=== PATIENT | female | born 1960 | race African-American/Black ===

== ENCOUNTER 2019-01-01 13:40 | Inpatient (IN) | payer MEDICARE, MEDICAID ==
[2019-01-01] VITALS (7 sets, daily range): BP systolic 124–159; BP diastolic 60–98; BMI 40.4
[~2019-01-01 13:40] MED LIST: ASCORBIC ACID500 MG PO; ASPIRIN81 MG PO; BUMEX2 MG PO; CARDIZEM CD180 MG PO; CATAPRES0.1 MG PO; COREG 3.1253.125 MG; COREG12.5 MG PO; COREG25 MG; COREG25 MG PO; COREG6.25 MG PO; ELIQUIS5 MG PO; FAMOTIDINE10 MG PO; GAS-X125 M1 PO; GLUCAGEN1 MG/VIAL IM; HUMALOG 30100 UNITS/ SC; HYDRALAZINE HC100 MG PO; HYDRALAZINE HCL25 MG; HYDROCODON-ACE1 EAC2 PO; IPRAT-ALBUT 0.5-3 ML UPD; ISOSORBIDE DINI10 MG; K-DUR20 MEQ PO; KEPPRA500 MG PO; LAMICTAL25 MG PO; LANTUS INSULIN10 ML SC; LASIX40 MG PO; LECITHIN1200 MG; LIPITOR80 MG PO; MECLIZINE HCL25 MG PO; METOLAZONE5 MG PO; MIRALAX17 GM PO; NEURONTIN 300300 MG PO; NITROSTAT0.4 MG SL; NORVASC5 MG; NYSTATIN OINTME15 GM; PAXIL20 MG PO; PROTONIX40 MG; RENA-VITE TABL0.8 MG PO; SENNA LAXATIVE8.6 MG PO; ULORIC40 MG PO; Xopenex 0.63 MG INH UPD
[2019-01-01 14:15] LABS: BASOPHILS 0.1 % (0-2); EOSINOPHILS 0.8 % (0-7); HEMATOCRIT 25.3 % (36.0-48.0); HEMOGLOBIN 8.3 g/dL (12-16); IMMATURE GRANULOCYTES 0.4 % (0-5); LYMPHOCYTES 8.2 % (15-50); MCH 31.1 pg (26.0-34.0); MCHC 32.8 g/dL (31.0-37.0); MCV 94.8 fL (80.0-100.0); MEAN PLATELET VOLUME 9.5 fL (7.4-10.4); MONOCYTES 5.1 % (2-11); NEUTROPHILS 85.4 % (40-80); PLATELET COUNT 267 10x3/uL (130-400); RBC 2.67 10x6/uL (4.00-5.40); RDW 15.7 % (11.5-14.5); WBC 12.7 10x3/uL (4.8-10.8)
[2019-01-01 14:25] LABS: KETONE - SERUM NEGATIVE (NEGATIVE)
[2019-01-01 14:40] LABS: ALBUMIN 3.1 g/dL (3.4-5.0); ALKALINE PHOSPHATASE 81 U/L (46-116); ALT (SGPT) 35 U/L (10-68); BILIRUBIN - TOTAL 0.51 mg/dL (0.2-1.3); CALC OSMOLALITY 309 mosm/kg (275-300); CALCIUM 9.4 mg/dL (8.5-10.1); CARBON DIOXIDE 25.5 mmol/L (21.0-32.0); CHLORIDE - SERUM 100 mmol/L (98-107); CREATININE - SERUM 2.4 mg/dL (0.6-1.3); MAGNESIUM - SERUM 2.1 mg/dL (1.8-2.4); POTASSIUM - SERUM 4.7 mmol/L (3.5-5.1); PROTEIN - SERUM 8.6 g/dL (6.4-8.2); SODIUM 135 mmol/L (136-145); UREA NITROGEN 89 mg/dL (7-18); eGFR NON AFRICAN AMERICAN 22 mL/min (90-120)
[2019-01-01 14:48] LABS: APPEARANCE HAZY (CLEAR); BILIRUBIN NEGATIVE (NEGATIVE); COLOR YELLOW (YELLOW); GLUCOSE 250 mg/dL (NEGATIVE); KETONE NEGATIVE (NEGATIVE); NITRITE NEGATIVE (NEGATIVE); PROTEIN NEGATIVE (NEGATIVE); SPECIFIC GRAVITY 1.015 (1.005-1.020); UROBILINOGEN NORMAL (NORMAL)
[2019-01-01 14:53] LABS: GLUCOSE 329 mg/dL (74-106)
--- NOTE | 2019-01-01 18:07 | NUR ---
WILL DC NS PER ADMIT ORDERS, ADMIT ORDER STATES S-LOC FLUSH Q SHIFT.
--- NOTE | 2019-01-01 20:39 | NUR ---
HS MEDS GIVEN WITH FRESH ICE WATER. BS 333, COVERED PER S/S. PT DENIES PAIN OR NEEDS, BED LOW, CL IN REACH.
[2019-01-02] VITALS (7 sets, daily range): BP systolic 118–166; BP diastolic 60–89; BMI 42.2; BMI 40.4
--- NOTE | 2019-01-02 07:02 | NUR ---
MORNING ROUNDS MADE. PT LAYING IN RESTING. DENIES NEEDS AT THIS TIME. FALL PRECAUTIONS IN PLACE. WILL CTM.
--- NOTE | 2019-01-02 09:13 | NUR ---
VITALS STABLE. TOOK MEDS WITHOUT DIFFICULTY. IV TO R EJ PATENT, DRSG C/D/I, NO REDNESS OR EDEMA NOTED, NS @ 10. 2L 02 VIA WI. A/O X 4. NORMAL SINUS ON TELE. MCKAY IN PLACE, DRAINING BY GRAVITY, CLEAR YELLOW URINE NOTED. CATHRYN HEEL PROTECTORS NOTED. DENIES FURTHER NEEDS AT THIS TIME. FALL PRECAUTIONS IN PLACE. YELLOW GOWN ON. NON SKID SOCKS ON. SR UP X 3. CL IN REACH. BED LOWERED AND LOCKED. CL IN REACH. WILL CTM.
--- NOTE | 2019-01-02 10:07 | NUR ---
I have reviewed this patient and I concur with the Shift Assessment completed by the Licensed Practical Nurse today this shift.
--- NOTE | 2019-01-02 13:57 | MORECARE ---
CASE MANAGEMENT DISCHARGE SUMMARY PATIENT: VIDA GOMEZ UNIT: [id number] ADM DATE: 01/01/19 AGE: 58 : 58 SEX: F ROOM/BED: D.2126 AUTHOR: BAYRON,DOC PHYSICIAN: REFERRING PHYSICIAN: FRANKY CASAREZ MD DATE OF SERVICE: 01/02/19 Discharge Plan Patient Name: VIDA GOMEZ Facility: [facility]:[place] : 1960 Planned Disposition: [facility] Facility Anticipated Discharge Date: Discharge Date: Expected LOS: Initial Reviewer: [email or web address] Initial Review Date: 01/01/2019 Generated: 01/02/19 2:57 pm DCPIA - Discharge Planning Initial Assessment Updated by [email or web address]: Jovanni Santa on 01/02/19 1:52 pm * Is the patient Alert and Oriented? Yes * How many steps to enter\exit or inside your home? NONE * PCP DR. BABB * [facility] * Preadmission Environment [facility] Facility * Facility Name [facility] * ADLs Partial Dependent * Partial ADLs (Assistance needed) Ambulation Bathing Dressing Medication Management Transfers * Equipment Cane Shower Chair * Other Equipment ALL MEDICAL EQUIPMENT PROVIDED BY FACILITY * List name and contact numbers for known caregivers / representatives who currently or will assist patient after discharge: MARIE SUAREZ DTR, * Verbal permission to speak to the caregivers and representatives has been obtained from the patient. N/A * Community resources currently utilized None * Please name any agencies selected above. PT REPORTS HAVING [facility]IOR TO [facility] FOR REHAB * Additional services required to return to the preadmission environment? No * Can the patient safely return to the preadmission environment? Yes * Has this patient been hospitalized within the prior 30 days at any hospital? Yes External Providers External Provider: [facility] Next Contact Date: 01/02/2019 Service Request Date: Service Type: Resolution: Reviewer: Comments: Coverage Notice Reviewer: [id number] Mercedes Santa Notice Issued Date-Time: 01/02/2019 9:05 Notice Type: Patient Choice Letter Notice Delivered To: Patient Relationship to Patient: Truss Puller Helper Name: Delivery Method: HAND - Hand Delivered Jo Days: Prior Verbal Notification: Recipient Understood Notice: Yes Recipient Signature: Med Rec Note Co-signed by Attending: Coverage Notice Comment: [facility] RETURN Patient Name: VIDA GOMEZ Page [phone] at 1357 All edits/amendments must be made on the electronic document DICTATION DATE: 01/02/19 1356 PATIENT TRANSITION SPECIALIST: COLT 01/02/19 1356 RPT#: [id number] DC DATE: STATUS: ADM IN [facility] [address] [place] [address] END OF REPORT
--- NOTE | 2019-01-02 14:08 | MORECARE ---
CASE MANAGEMENT DISCHARGE SUMMARY PATIENT: VIDA GOMEZ UNIT: [id number] ADM DATE: 01/01/19 AGE: 58 : 58 SEX: F ROOM/BED: D.8786 AUTHOR: BAYRON,DOC PHYSICIAN: REFERRING PHYSICIAN: FRANKY CASAREZ MD DATE OF SERVICE: 01/02/19 Discharge Plan Patient Name: VIDA GOMEZ Facility: [facility]:Given : 1960 Planned Disposition: Correction Facility Anticipated Discharge Date: Discharge Date: Expected LOS: Initial Reviewer: [id number] Initial Review Date: 01/01/2019 Generated: 01/02/19 3:07 pm Comments DCP- Discharge Planning Updated by DANIELLA: Jovanni Santa on 01/02/19 12:[address] Patient Name: VIDA GOMEZ Admission Status: ER Accout number: [id number] Admission Date: 01-01-2019 : 1960 Admission Diagnosis: Attending: FRANKY CASAREZ Current LOS: 1 Anticipated DC Date: Planned Disposition: Correction Facility Primary Insurance: [facility] MEDICARE SOLUTIONS PLANNED EXTERNAL PROVIDER: [facility], MEDICARE REHAB BED Discharge Planning Comments: CM MET WITH PT IN ROOM TO DISCUSS DISCHARGE PLANNING AND NEEDS. PT REPORTS BEING IN REHAB AT [facility] AND WILL BE RETURNING THERE FOR CONTINUED REHAB AT DISCHARGE. CM GAVE [facility] HOME FACILITY PROVIDER LISTING AND COMPLETED CHOICE FOR [facility] WHICH PT WAS NOT ABLE TO SIGN. CM FAXED HOSPITAL UPDATE TO [facility] AT [phone]. FOR DISCHARGE, FAX DISCHARGE INFORMATION TO [facility] AT [phone]. NURSE REPORT TO BE CALLED TO [facility] AT [phone]. [facility] TO ARRANGE VAN TRANSPORTATION. Petroleum Refining Firer: Jovanni aSnta DCPIA - Discharge Planning Initial Assessment Updated by [id number]: Jovanni Santa on 01/02/19 1:52 pm * Is the patient Alert and Oriented? Yes * How many steps to enter\exit or inside your home? NONE * PCP DR. BABB * [facility] * Preadmission Environment [facility] Facility * Facility Name [facility] * ADLs Partial Dependent * Partial ADLs (Assistance needed) Ambulation Bathing Dressing Medication Management Transfers * Equipment Cane Shower Chair * Other Equipment ALL MEDICAL EQUIPMENT PROVIDED BY FACILITY * List name and contact numbers for known caregivers / representatives who currently or will assist patient after discharge: MARIE SUAREZ, DTR, * Verbal permission to speak to the caregivers and representatives has been obtained from the patient. N/A * Community resources currently utilized None * Please name any agencies selected above. PT REPORTS HAVING [facility] TO [facility] FOR REHAB * Additional services required to return to the preadmission environment? No * Can the patient safely return to the preadmission environment? Yes * Has this patient been hospitalized within the prior 30 days at any hospital? Yes Coverage Notice Reviewer: [id number] Mercedes Santa Notice Issued Date-Time: 01/02/2019 9:05 Notice Type: Patient Choice Letter Notice Delivered To: Patient Relationship to Patient: Preparation Operator Name: Delivery Method: HAND - Hand Delivered Jo Days: Prior Verbal Notification: Recipient Understood Notice: Yes Recipient Signature: Med Rec Note Co-signed by Attending: Coverage Notice Comment: [facility] SNF RETURN Last DP export: 01/02/19 12:57 p Patient Name: VIDA GOMEZ Page 67855 at 1408 All edits/amendments must be made on the electronic document DICTATION DATE: 01/02/191406 ROD MILL OPERATOR: COLT 01/02/191406 RPT#: [id number] DC DATE: STATUS: ADM IN [facility] [address] [place] [address] END OF REPORT
[2019-01-02 16:41] LABS: INR 2.28 (0.85-1.17); PROTIME 24.4 SECONDS (11.6-15.0)
[2019-01-02 16:42] LABS: APTT 40.3 SECONDS (22.8-39.4); BASOPHILS 0.2 % (0-2); EOSINOPHILS 1.8 % (0-7); HEMATOCRIT 25.8 % (36.0-48.0); HEMOGLOBIN 8.1 g/dL (12-16); IMMATURE GRANULOCYTES 0.2 % (0-5); LYMPHOCYTES 5.3 % (15-50); MCH 29.8 pg (26.0-34.0); MCHC 31.4 g/dL (31.0-37.0); MCV 94.9 fL (80.0-100.0); MEAN PLATELET VOLUME 10.1 fL (7.4-10.4); MONOCYTES 7.1 % (2-11); NEUTROPHILS 85.4 % (40-80); PLATELET COUNT 312 10x3/uL (130-400); RBC 2.72 10x6/uL (4.00-5.40); WBC 12.6 10x3/uL (4.8-10.8)
[2019-01-02 16:46] LABS: % SATURATION 17 % (15-55); D-DIMER-QUANTITATIVE 3.07 ug/mLFEU (0.20-0.54); IRON 39 ug/dl (35-150); TOTAL IRON BIND CAPACITY 223 ug/dl (260-445); UNSAT IRON BIND CAPACITY 184 ug/dl (150-375)
--- NOTE | 2019-01-02 16:52 | NUR ---
DR. CASAREZ INFORMED OF PT ELEVATED D DIMER
--- NOTE | 2019-01-02 16:53 | NUR ---
NO ORDERS GIVEN FOR ELEVATED DDIMER AT THIS TIME
[2019-01-02 16:59] LABS: ANION GAP 15.2 mmol/L (8-16); BILIRUBIN - TOTAL 0.52 mg/dL (0.2-1.3); CALCIUM 9.6 mg/dL (8.5-10.1); CARBON DIOXIDE 25.5 mmol/L (21.0-32.0); CREATININE - SERUM 2.3 mg/dL (0.6-1.3); POTASSIUM - SERUM 4.7 mmol/L (3.5-5.1); PROTEIN - SERUM 8.6 g/dL (6.4-8.2)
--- NOTE | 2019-01-02 21:52 | NUR ---
HS MEDS GIVEN WITH FRESH ICE WATER. BS COVERED PER S/S. ORANGE JUICE GIVEN AT PT REQUEST.
--- NOTE | 2019-01-03 04:26 | NUR ---
RESTING WITH EYES CLOSED, RESPERATIONS EVEN, NO S/S DISTRESS NOTED.
[2019-01-03 04:30] VITALS: BP 127/69
--- NOTE | 2019-01-03 05:40 | NUR ---
I have reviewed this patient and I concur with the Shift Assessment completed by the Licensed Practical Nurse today this shift.
--- NOTE | 2019-01-03 08:00 | NUR ---
PT RESTING IN BED, SHIFT ASSESSMENT PERFORMED, DENIES ANY NEEDS AT THIS TIME, WILL CONT TO FOLLOW POC
[2019-01-03 08:43] VITALS: BP 139/95
--- NOTE | 2019-01-03 11:27 | NUR ---
PT FSBS 428, NOTIFIED ULISES WILDER. ULISES STATES TO GIVE THE 12U PLUS THE 5U ORDERED.
[2019-01-03 11:40] VITALS: BP 121/68
--- NOTE | 2019-01-03 12:21 | NUR ---
PT RESTING IN BED, CALL LIGHT WITHIN REACH, DENIES ANY NEEDS AT THIS TIME, WILL CONT TO FOLLOW POC
[2019-01-03 14:18] LABS: ANION GAP 14.6 mmol/L (8-16); CALCIUM 9.1 mg/dL (8.5-10.1); CARBON DIOXIDE 24.5 mmol/L (21.0-32.0); CREATININE - SERUM 2.5 mg/dL (0.6-1.3); POTASSIUM - SERUM 5.1 mmol/L (3.5-5.1)
[2019-01-03 14:39] LABS: HEMATOCRIT 25.7 % (36.0-48.0); HEMOGLOBIN 8.2 g/dL (12-16); MCH 31.2 pg (26.0-34.0); MCHC 31.9 g/dL (31.0-37.0); MEAN PLATELET VOLUME 9.1 fL (7.4-10.4); PLATELET COUNT 281 10x3/uL (130-400); RBC 2.63 10x6/uL (4.00-5.40); RDW 16.2 % (11.5-14.5); WBC 11.9 10x3/uL (4.8-10.8)
[2019-01-03 14:41] LABS: MCV 97.7 fL (80.0-100.0)
[2019-01-03 15:44] VITALS: BP 122/75
[2019-01-03 15:48] LABS: EOSINOPHILS 4 % (0-7); LYMPHOCYTES 11 % (15-50); MONOCYTES 7 % (2-11); NEUTROPHILS 78 % (40-80); PLATELET ESTIMATE NORMAL
--- NOTE | 2019-01-03 18:35 | NUR ---
MCKAY CATHETER REMOVED WITH CATHETER TIP INTACT VIA NURSE DRIVEN PROTOCOLS
--- NOTE | 2019-01-03 19:30 | NUR ---
REPORT RECIEVED AND ROUNDING COMPLETE. PT LAYING IN BED EYES CLOSED BREATHING SHALLOW BUT EVEN. PT HAS ON NC AT 2L. PT HARD TO AROUSE, HOUSE SUP BARBARA ASSISTED IN WAKING PT UP. USED A WET WASH CLOTH AND TURNED ON ALL THE LIGHTS. ONCE PT WAS AWAKE SHE WAS A&O X4. PT HAS WEAKNESS TO THE LEFT SIDE DUE TO PREVIOUS CVA. PT HAS A BOOT ON LEFT FOOT FOR DEEP TISSUE INJURY, ASSESMENT COMPLETE. PT STATES SHE HAS NO NEEDS AT THIS TIME. CALL LIGHT WITHIN REACH AND BED IN LOWEST POSITION.
[2019-01-03 20:00] VITALS: BP 118/61
[2019-01-04] VITALS (7 sets, daily range): BP systolic 107–135; BP diastolic 64–80
--- NOTE | 2019-01-04 01:08 | NUR ---
I have reviewed this patient and I concur with the Shift Assessment completed by the Licensed Practical Nurse today this shift.
[2019-01-04 08:24] LABS: BASOPHILS 0.2 % (0-2); EOSINOPHILS 4.6 % (0-7); HEMATOCRIT 25.6 % (36.0-48.0); HEMOGLOBIN 7.8 g/dL (12-16); IMMATURE GRANULOCYTES 0.2 % (0-5); LYMPHOCYTES 6.8 % (15-50); MCH 29.5 pg (26.0-34.0); MCHC 30.5 g/dL (31.0-37.0); MEAN PLATELET VOLUME 9.5 fL (7.4-10.4); MONOCYTES 8.4 % (2-11); NEUTROPHILS 79.8 % (40-80); PLATELET COUNT 336 10x3/uL (130-400); RBC 2.64 10x6/uL (4.00-5.40); RDW 15.8 % (11.5-14.5); WBC 13.3 10x3/uL (4.8-10.8)
--- NOTE | 2019-01-04 08:30 | NUR ---
PT RESTING IN BED, SHIFT ASSESSMENT PERFORMED. DENIES ANY NEEDS AT THIS TIME, WILL CONT TO FOLLOW POC
[2019-01-04 08:38] LABS: ANION GAP 13.1 mmol/L (8-16); CALCIUM 9.3 mg/dL (8.5-10.1); CARBON DIOXIDE 26.8 mmol/L (21.0-32.0); CREATININE - SERUM 3.1 mg/dL (0.6-1.3); POTASSIUM - SERUM 4.9 mmol/L (3.5-5.1)
--- NOTE | 2019-01-04 09:00 | NUR ---
PT BED SATURATED IN URINE, COMPLETE LINEN CHANGE PROVIDIED. DENIES ANY FURTHER NEEDS AT THIS TIME, WILL CONT TO FOLLOW POC
--- NOTE | 2019-01-04 09:15 | NUR ---
PT STARTED YELLING, UPON ASSESSMENT PT HAD SPILT HER WHOLE CUP OF COFFEE ON HER AND THE BED, COMPLETE LINEN CHANGE PROVIDED. DENIES ANY FURTHER NEEDS. WILL CONT TO FOLLOW POC
--- NOTE | 2019-01-04 12:25 | NUR ---
PT RESTING IN BED, DENIES ANY NEEDS AT THIS TIME. WILL CONT TO FOLLOW POC
--- NOTE | 2019-01-04 13:58 | NUR ---
Nutrition follow-up: Diet: Renal ADA PO intake ~25-50% of meals Labs reviewed; glucose elevated Wt: 246# Will continue to provide food choices and honor food preferences within diet restrictions. Will offer nutritional supplements. RDN following.
--- NOTE | 2019-01-04 15:20 | NUR ---
BED BATH GIVEN TO PT AND COMPLETE LINEN CHANGE PROVIDED. ASSISTED PT WITH BRUSHING TEETH. DENIES ANY OTHER NEEDS AT THIS TIME. WILL CONT TO FOLLOW POC
[2019-01-04 17:08] LABS: FOLATE (FOLIC ACID) - SERUM >20.0 ng/mL (>3.0)
[2019-01-04 18:09] LABS: BASOPHILS 0.4 % (0-2); HEMATOCRIT 24.7 % (36.0-48.0); IMMATURE GRANULOCYTES 1.5 % (0-5); LYMPHOCYTES 4.8 % (15-50); MCH 29.6 pg (26.0-34.0); MCHC 30.8 g/dL (31.0-37.0); MCV 96.1 fL (80.0-100.0); MEAN PLATELET VOLUME 9.5 fL (7.4-10.4); MONOCYTES 7.8 % (2-11); NEUTROPHILS 82.5 % (40-80); PLATELET COUNT 313 10x3/uL (130-400); RBC 2.57 10x6/uL (4.00-5.40); RDW 15.8 % (11.5-14.5); WBC 12.7 10x3/uL (4.8-10.8)
[2019-01-04 18:10] LABS: HEMOGLOBIN 7.6 g/dL (12-16)
--- NOTE | 2019-01-04 18:35 | NUR ---
PIV TO PT RIGHT EJ INFILTRATED. PIV REMOVED WITH CATHETER TIP INTACT. 22G PIV INSERTED TO PT LEFT UPPER ARM X2 ATTEMPTS. PT TOLERATED WELL
--- NOTE | 2019-01-04 19:15 | NUR ---
RECEIVED REPORT, WILL ASSUME CARE OF PT, PT IS A SLEEP, NO DISTRESS NOTICED AT THIS TIME, BED IS LOW, SRX2, CALL LIGHT IN REACH, WILL CONTINUE PLAN OF CARE
--- NOTE | 2019-01-04 21:18 | NUR ---
[id number] 16UNITS OF VANESSA, PROVIDED A SNACK
--- NOTE | 2019-01-05 00:52 | NUR ---
I have reviewed this patient and I concur with the Shift Assessment completed by the Licensed Practical Nurse today this shift.
[2019-01-05 02:11] LABS: BASOPHILS 0.1 % (0-2); EOSINOPHILS 3.4 % (0-7); HEMATOCRIT 25.2 % (36.0-48.0); HEMOGLOBIN 7.7 g/dL (12-16); IMMATURE GRANULOCYTES 0.3 % (0-5); LYMPHOCYTES 4.9 % (15-50); MCH 29.5 pg (26.0-34.0); MCHC 30.6 g/dL (31.0-37.0); MCV 96.6 fL (80.0-100.0); MEAN PLATELET VOLUME 9.6 fL (7.4-10.4); MONOCYTES 7.8 % (2-11); NEUTROPHILS 83.5 % (40-80); PLATELET COUNT 330 10x3/uL (130-400); RBC 2.61 10x6/uL (4.00-5.40); RDW 15.9 % (11.5-14.5)
[2019-01-05 02:18] LABS: ANION GAP 13.2 mmol/L (8-16); CALCIUM 9.2 mg/dL (8.5-10.1); CARBON DIOXIDE 26.8 mmol/L (21.0-32.0); CREATININE - SERUM 3.6 mg/dL (0.6-1.3); VANCOMYCIN - TROUGH 27.5 ug/mL (10.0-20.0)
[2019-01-05 04:20] VITALS: BP 122/70
--- NOTE | 2019-01-05 07:22 | NUR ---
REPORT RECEIVED. WILL CONTINUE WITH POC. PT CURRENTLY LYING SEMI FOWLERS. CALL LIGHT W/I REACH. PT IS RESTING AT THE MOMENT. RR EVEN AND UNLABORED ON 2L 02. NS INFUSING @KVO VIA L.UPPER ARM PIV. NO S/S OF DISTRESS NOTED. PT DENIES ANY NEEDS. WILL CTM.
[2019-01-05 08:31] VITALS: BP 128/53
[2019-01-05 11:30] VITALS: BP 117/61
--- NOTE | 2019-01-05 13:02 | NUR ---
PT IS DEMANDING TO GO TO ANOTHER HOSPITAL. SHE IS ORIENTED X4. SHE STATES,"YALL ARENT DOING ANYTHING FOR ME, IM A GROWN WOMAN AND I SHOULD HAVE A CHOICE." NOTIFIED AND OF THE ISSUE. WILL CTM.
--- NOTE | 2019-01-05 13:52 | NUR ---
PT IS REFUSING TRANSFUSION OF BLOOD AND WILL NOT SIGN CONSENTS STATING "I CAN GET BLOOD AT THE OTHER HOSPITAL, GET ME OUT OF HERE." PT ALSO COMPLAINED OF GAS PAINS. WHEN ASKED IF SHE WOULD LIKE FOR ME TO CALL AND GET HER SOMETHING TO HELP RELIEVE THOSE PAINS SHE STATED "IM NOT TAKING NOTHING YALL TRY TO GIVE ME." WILL CTM.
--- NOTE | 2019-01-05 14:08 | NUR ---
I have reviewed this patient and I concur with the Shift Assessment completed by the Licensed Practical Nurse today this shift.
--- NOTE | 2019-01-05 14:35 | NUR ---
, ARMIDA MALHOTRA, AND AWARE OF PT ASKING TO TRANSFER TO ANOTHER HOSPITAL AND THAT PT IS REFUSING BLOOD AND MEDICATIONS.
--- NOTE | 2019-01-05 15:27 | NUR ---
PT REFUSED MEDICATIONS STATING "IM NOT TAKING ANYTHING UNTIL I GET TO THE OTHER HOSPITAL."
--- NOTE | 2019-01-05 15:44 | NUR ---
DISCUSSED AT GREAT LENGTH WITH TO PATIENT ABOUT ISSUE OF NONCOMPLIANCE AND THE POSSIBLITY OF TRANSFERRING TO ANOTHER HOSPITAL. STATED IN A PROFESSIONAL MANNER THAT THE PATIENT WOULD MORE THAN LIKELY NOT BE ACCEPTED BECAUSE WE ARE PROVIDING A LEVEL OF CARE THAT IS ADEQUATE WITH WHAT THE PATIENT NEEDS AND THAT IT WOULD BE IN THE PATIENTS BEST INTEREST TO COMPLY WITH TREATMENT. PT CONTINUED STATING THAT SHE WANTED TO BE TRANSFERED AND THAT SHE WOULD CALL HER DAUGHTER TO COME GET HER. WILL CTM. PT CONTINUES TO REFUSE BLOOD AND MEDICATIONS.
[2019-01-05 16:34] VITALS: BP 124/69
--- NOTE | 2019-01-05 19:30 | NUR ---
RECEIVED REPORT, WILL ASSUME CARE OF PT, WAS TOLD PT WAS REFUSING MEDS AND BLOOD, EXPLAINED TO PT HOW IMPORTANT HER MEDS AND BLOOD WAS, SHE AGREEED TO GET BLOOD, PT SIGNED CONSENT, COREY FULLER STARTED BLOOD, PT ALSO AGREE TO TAKE HER MEDS, BED IS LOW, SRX 2, CALL LIGHT IN REACH, WILL CONTINUE PLAN OF CARE
--- NOTE | 2019-01-05 19:45 | NUR ---
STATES SHE FEELS LIKE SHE NEEDS TO PEE,BUT CAN'T, DID BLADDER SCAN-[id number],
[2019-01-05 20:14] VITALS: BP 127/66
[2019-01-05 23:45] VITALS: BP 131/61
--- NOTE | 2019-01-06 01:00 | NUR ---
WAS INCONT. EDUCATIONAL ASSISTANT CLEANED HER UP, PT SAYS SHE FEELS BETTER
[2019-01-06 03:49] VITALS: BP 117/72
--- NOTE | 2019-01-06 04:00 | NUR ---
I have reviewed this patient and I concur with the Shift Assessment completed by the Licensed Practical Nurse today this shift.
[2019-01-06 04:45] LABS: BASOPHILS 0.2 % (0-2); EOSINOPHILS 0.9 % (0-7); HEMATOCRIT 25.1 % (36.0-48.0); HEMOGLOBIN 7.9 g/dL (12-16); IMMATURE GRANULOCYTES 0.3 % (0-5); LYMPHOCYTES 5.4 % (15-50); MCH 29.9 pg (26.0-34.0); MCHC 31.5 g/dL (31.0-37.0); MCV 95.1 fL (80.0-100.0); MEAN PLATELET VOLUME 9.5 fL (7.4-10.4); MONOCYTES 6.3 % (2-11); NEUTROPHILS 86.9 % (40-80); PLATELET COUNT 338 10x3/uL (130-400); RBC 2.64 10x6/uL (4.00-5.40); WBC 13.2 10x3/uL (4.8-10.8)
[2019-01-06 05:00] LABS: ANION GAP 18.8 mmol/L (8-16); CALCIUM 9.4 mg/dL (8.5-10.1); CREATININE - SERUM 3.7 mg/dL (0.6-1.3); POTASSIUM - SERUM 4.8 mmol/L (3.5-5.1); VANCOMYCIN - RANDOM 24.2 ug/mL (10.0-20.0)
[2019-01-06 10:00] VITALS: BP 157/79
[2019-01-06 16:43] VITALS: BP 146/82
[2019-01-06 17:14] VITALS: BP 141/67
--- NOTE | 2019-01-06 17:23 | NUR ---
ALERT AND ORIENTED X4. YELLING OUT IN PAIN. LINEN SOILED. BED CHANGED. NORCO ADMINISTERED ORDERED PER . AFULTTER 62 ON TELEMETRY. CONTINUE TO MONITOR PAIN. REPOSITION IN BED. CONTINUE PLAN OF CARE AND SAFETY PRECAUTIONS.
--- NOTE | 2019-01-06 19:27 | NUR ---
RECEIVED REPORT, WILL ASSUME CARE OF PT, REPOSTIONS PT TO L.SIDE, BED IS LOW, SRX2, CALL LIGHT IN REACH, WILL CONTINUE PLAN OF CARE
[2019-01-06 19:55] VITALS: BP 113/61
[2019-01-07 03:43] VITALS: BP 148/61
--- NOTE | 2019-01-07 04:08 | NUR ---
I have reviewed this patient and I concur with the Shift Assessment completed by the Licensed Practical Nurse today this shift.
[2019-01-07 05:40] LABS: BASOPHILS 0.2 % (0-2); EOSINOPHILS 0.4 % (0-7); HEMATOCRIT 23.3 % (36.0-48.0); HEMOGLOBIN 7.6 g/dL (12-16); IMMATURE GRANULOCYTES 0.7 % (0-5); LYMPHOCYTES 6.2 % (15-50); MCH 30.2 pg (26.0-34.0); MCHC 32.6 g/dL (31.0-37.0); MEAN PLATELET VOLUME 9.6 fL (7.4-10.4); MONOCYTES 8.5 % (2-11); PLATELET COUNT 333 10x3/uL (130-400); RBC 2.52 10x6/uL (4.00-5.40); RDW 16.1 % (11.5-14.5); WBC 13.7 10x3/uL (4.8-10.8)
[2019-01-07 05:47] LABS: MCV 92.5 fL (80.0-100.0)
[2019-01-07 07:38] VITALS: BP 133/82
[2019-01-07 08:22] LABS: CALCIUM 9.6 mg/dL (8.5-10.1); CARBON DIOXIDE 21.4 mmol/L (21.0-32.0); CREATININE - SERUM 3.8 mg/dL (0.6-1.3); POTASSIUM - SERUM 4.4 mmol/L (3.5-5.1); VANCOMYCIN - RANDOM 18.5 ug/mL (10.0-20.0)
--- NOTE | 2019-01-07 11:23 | NUR ---
LETHARGIC. YELLS OUT UNABLE TO STATE REASON. REQUIRES COACHING TO SWALLOW. NOTIFY AND KELSEY OF LOC CHANGE.
[2019-01-07 11:56] VITALS: BP 138/80
--- NOTE | 2019-01-07 15:30 | NUR ---
22 GUAGE INSERTED TO R.WRIST X2 STICKS. PT VERY LETHARGIC AND RESTLESS. PT INCONTINENT AND SOILED ALL LINENS. BANDMILL OPERATOR AT BEDSIDE TO PERFORM COMPLETE LINEN CHANGE AND BATH. NOTIFIED PRIMARY NURSE JIM OF PIV SITE. NO FURTHER NEEDS.
--- NOTE | 2019-01-07 16:00 | NUR ---
LETHARGIC. AROUSES TO STIMULI. ABLE TO FOLLOW DIRECTIONS. SPEECH GARBLED. BED BATH AND LINEN CHANGE COMPLETE. DAUGHTER AT BEDSIDE. CODE STATUS DNR PER PATIENT AND DAUGHTER. NOTIFY KELSEY AND OF REQUEST FOR DNR STATUS. INITIATED ZOSYN ADMINISTRATION PER . INITIATED NS @ 75mL/HR INFUSING THROUGH RT WRIST IV ORDERED. AFLUTTER 99 ON TELEMETRY. HOB ELEVATED 60 DEGREES DUE TO MOUTH SECRETIONS DRAINING OUT. CONTINUE PLAN OF CARE AND SAFETY PRECAUTIONS.
[2019-01-07 16:06] LABS: AEROBE ID Final report (())
[2019-01-07 16:14] VITALS: BP 115/79
[2019-01-07 20:00] VITALS: BP 130/78
--- NOTE | 2019-01-07 21:13 | NUR ---
ATTEMPTED TO GIVE PT ORAL MEDICATIONS, PT TOOK PILLS INTO HER MOUTH AND THEN COULDNT/WOULDNT SWALLOW THEM. HAD TO HAVE PT SPIT OUT ALL OF HER PO MEDS IN TO A CUP.
--- NOTE | 2019-01-07 22:15 | NUR ---
PRBCs INFUSING, VITALS STABLE.
--- NOTE | 2019-01-07 22:45 | NUR ---
PRBCs INFUSING TO RIGHT WRIST PIV. VITALS STABLE.
[2019-01-08] VITALS: BP 149/80
--- NOTE | 2019-01-08 01:45 | NUR ---
PRBCS FINISHED INFUSING, LINE FLUSHING WITH NS, VITALS STABLE. NO S/S ADVERSE REACTION NOTED.
--- NOTE | 2019-01-08 03:25 | NUR ---
I have reviewed this patient and I concur with the Shift Assessment completed by the Licensed Practical Nurse today this shift.
[2019-01-08 04:00] VITALS: BP 146/89
--- NOTE | 2019-01-08 04:02 | NUR ---
RESTING WITH EYES CLOSED, RESPERATIONS EVEN, NO S/S DISTRESS NOTED.
--- NOTE | 2019-01-08 05:42 | NUR ---
GRAB HOOKER AT BED SIDE, BATH AND LINEN CHANGE COMPELTE. REPOSITIONED IN BED FOR COMFORT.
[2019-01-08 06:38] LABS: ANION GAP 20.9 mmol/L (8-16); CALCIUM 9.2 mg/dL (8.5-10.1); CARBON DIOXIDE 22.4 mmol/L (21.0-32.0); CREATININE - SERUM 3.3 mg/dL (0.6-1.3); PHOSPHOROUS 4.6 mg/dL (2.5-4.9); POTASSIUM - SERUM 4.3 mmol/L (3.5-5.1); VANCOMYCIN - RANDOM 15.2 ug/mL (10.0-20.0)
[2019-01-08 06:53] LABS: HEMATOCRIT 26.6 % (36.0-48.0); HEMOGLOBIN 8.7 g/dL (12-16); MCH 30.3 pg (26.0-34.0); MCHC 32.7 g/dL (31.0-37.0); MCV 92.7 fL (80.0-100.0); MEAN PLATELET VOLUME 9.7 fL (7.4-10.4); PLATELET COUNT 351 10x3/uL (130-400); RBC 2.87 10x6/uL (4.00-5.40)
--- NOTE | 2019-01-08 07:30 | NUR ---
ASSESSMENT COMPLETED. TELEMERTY SHOWS FLUTTER 103. PT IS NON VERBAL, LETHARTIC DOESNT. OPEN HER EYES TO SPEECH. FOAMS AT MOUTH AND DROOLS. UN ABLE TO SWALLOW. RT WRIST IV AT KVO. HEEL PROCTORS NOTED. FAMILY AT BEDSIDE. SR UP TIMES 2. CALL LIGHT IN REACH. WILL MONITOR
[2019-01-08 07:47] VITALS: BP 134/58
[2019-01-08 08:54] LABS: ALBUMIN 3.1 g/dL (3.4-5.0); BILIRUBIN - DIRECT 0.32 mg/dL (0.00-0.30); BILIRUBIN - INDIRECT 0.88 mg/dL (0.00-1.00); BILIRUBIN - TOTAL 1.2 mg/dL (0.2-1.3); PROTEIN - SERUM 8.5 g/dL (6.4-8.2)
[2019-01-08 09:04] LABS: TROPONIN-I 0.454 ng/mL (0.000-0.060)
[2019-01-08 10:12] LABS: BASOPHILS 1 % (0-2); LYMPHOCYTES 10 % (15-50); MONOCYTES 10 % (2-11); NEUTROPHILS 79 % (40-80); PLATELET ESTIMATE NORMAL
[2019-01-08 10:13] LABS: ANISOCYTOSIS 1+; CRENATED CELLS OCC; POLYCHROMASIA OCC
--- NOTE | 2019-01-08 11:16 | MORECARE ---
CASE MANAGEMENT DISCHARGE SUMMARY PATIENT: VIDA GOMEZ UNIT: [id number] ADM DATE: 01/01/19 AGE: 58 : 58 SEX: F ROOM/BED: D.9946 AUTHOR: EDGAR VERMA PHYSICIAN: REFERRING PHYSICIAN: FRANKY CASAREZ MD DATE OF SERVICE: 01/08/19 Discharge Plan Patient Name: IVDA GOMEZ Facility: [facility]:[place] : 1960 Planned Disposition: Retirement Facility Anticipated Discharge Date: Discharge Date: Expected LOS: Initial Reviewer: [id number] Initial Review Date: 01/01/2019 Generated: 01/08/19 12:15 pm Comments DCP- Discharge Planning Updated by [id number]: Payton Stacy on 01/08/19 10:[address] RECEIVED VERBAL ORDER TO TRANSFER PATIENT TO [facility] FOR NEUROLOGY SECONDARY TO SEIZURE ACTIVITY, LETHARGY, AND FOAMING AT THE MOUTH. DR GUNDERSON IS TO DO THE DOC-TO-DOC, AND HER CELL NUMBER WAS PROVIDED TO ME VIA KELSEY TAPIA APN. @ 4400 I SPOKE WITH NATHAN IN BED CONTROL, REQUESTED INFORMATION HAS BEEN FAXED AND I AM WAITING ON HER RETURN CALL. AT TIME OF INITIAL CALL, SHE DID NOT TAKE DOWN THE INFORMATION FOR DR GUNDERSON, SHE STATED SHE WOULD REVIEW THE INFORMATION AND CALL ME BACK. I AM AWAITING ON A RETURN CALL. DCP- Discharge Planning Updated by [id number]: Jovanni Santa on 01/02/19 12:[address] Patient Name: VIDA GOMEZ Admission Status: ER Accout number: [id number] Admission Date: 01-01-2019 : 1960 Admission Diagnosis: Attending: FRANKY CASAREZ Current LOS: 1 Anticipated DC Date: Planned Disposition: Retirement Facility Primary Insurance: [facility] MEDICARE SOLUTIONS PLANNED EXTERNAL PROVIDER: [facility] MEDICARE REHAB BED Discharge Planning Comments: CM MET WITH PT IN ROOM TO DISCUSS DISCHARGE PLANNING AND NEEDS. PT REPORTS BEING IN REHAB AT [facility] AND WILL BE RETURNING THERE FOR CONTINUED REHAB AT DISCHARGE. CM GAVE LONGTERM FACILITY PROVIDER LISTING AND COMPLETED CHOICE FOR [facility] WHICH PT WAS NOT ABLE TO SIGN. CM FAXED HOSPITAL UPDATE TO [facility] AT [phone]. FOR DISCHARGE, FAX DISCHARGE INFORMATION TO [facility] AT [phone]. NURSE REPORT TO BE CALLED TO [facility] AT [phone]. [facility] TO ARRANGE VAN TRANSPORTATION. Medical Administrator: Jovanni Santa DCPIA - Discharge Planning Initial Assessment Updated by [id number]: Jovanni Santa on 01/02/19 1:52 pm * Is the patient Alert and Oriented? Yes * How many steps to enter\exit or inside your home? NONE * PCP DR. BABB * [facility] * Preadmission Environment Retirement Facility * Facility Name [facility] * ADLs Partial Dependent * Partial ADLs (Assistance needed) Ambulation Bathing Dressing Medication Management Transfers * Equipment Cane Shower Chair * Other Equipment ALL MEDICAL EQUIPMENT PROVIDED BY FACILITY * List name and contact numbers for known caregivers / representatives who currently or will assist patient after discharge: MARIE SUAREZ, DTR, * Verbal permission to speak to the caregivers and representatives has been obtained from the patient. N/A * Community resources currently utilized None * Please name any agencies selected above. PT REPORTS HAVING [facility] TO [facility] FOR REHAB * Additional services required to return to the preadmission environment? No * Can the patient safely return to the preadmission environment? Yes * Has this patient been hospitalized within the prior 30 days at any hospital? Yes Coverage Notice Reviewer: [id number] - Jovanni Santa Notice Issued Date-Time: 01/02/2019 9:05 Notice Type: Patient Choice Letter Notice Delivered To: Patient Relationship to Patient: Paint Process Engineer Name: Delivery Method: HAND - Hand Delivered Jo Days: Prior Verbal Notification: Recipient Understood Notice: Yes Recipient Signature: Med Rec Note Co-signed by Attending: Coverage Notice Comment: [facility] SNF RETURN Last DP export: 01/02/19 1:07 p Patient Name: VIDA GOMEZ Page 73953 at 1116 All edits/amendments must be made on the electronic document DICTATION DATE: 01/08/19 1115 SUPERVISOR MOTOR VEHICLE ASSEMBLY: COLT 01/08/19 1115 RPT#: [id number] DC DATE: STATUS: ADM IN [facility] [address] [place] [address] END OF REPORT
--- NOTE | 2019-01-08 13:16 | NUR ---
OT NOTE: PT VERY LETHARGIC; NOT RESPONDING VERBALLY. WILL RE ATTEMPT LATER. KENNY PERRY, OTR/L
[2019-01-08] MEDS ORDERED: ZOSYN 2.25 GM2.25 G1 IV (14:18)
--- NOTE | 2019-01-08 14:42 | NUR ---
I have reviewed this patient and I concur with the Shift Assessment completed by the Licensed Practical Nurse today this shift.
--- NOTE | 2019-01-08 15:00 | NUR ---
NO PO MEDS GIVEN DUE TO PTS BEING UNABLE TO SWALLOW. NO NEEDS NOTED.SR UP WITH FAMILY AT BEDSIDE
[2019-01-08 16:16] VITALS: BP 106/41
--- NOTE | 2019-01-08 16:29 | NUR ---
[facility]. FAMILY AT BEDSIDE. NO CHANGES
--- NOTE | 2019-01-08 17:39 | NUR ---
LYING QUIETLY. DENIES ANY NEEDS. WILL CONTINUE PLAN OF CARE.
[2019-01-08 20:00] VITALS: BP 138/84
--- NOTE | 2019-01-08 20:33 | NUR ---
PO MEDS NOT GIVEN DUE TO PT NOT BEING ABLE TO SWALLOW, BS 199, NO COVERAGE GIVEN DUE TO PT NOT EATING.
--- NOTE | 2019-01-08 21:03 | NUR ---
PT MORE ALERT TONIGHT THEN LAST NIGHT. PTS DAUGHTER AT BED SIDE.
[2019-01-09] VITALS: BP 158/92
--- NOTE | 2019-01-09 02:09 | NUR ---
ROTARY ENGRAVER AT BED SIDE, BATH AND LINEN CHANGE COMPLETE.
--- NOTE | 2019-01-09 02:36 | NUR ---
I have reviewed this patient and I concur with the Shift Assessment completed by the Licensed Practical Nurse today this shift.
[2019-01-09 04:00] VITALS: BP 130/72
[2019-01-09 05:21] LABS: BASOPHILS 0.1 % (0-2); EOSINOPHILS 1.2 % (0-7); HEMATOCRIT 25.5 % (36.0-48.0); HEMOGLOBIN 8.3 g/dL (12-16); IMMATURE GRANULOCYTES 0.5 % (0-5); LYMPHOCYTES 10.5 % (15-50); MCH 30.6 pg (26.0-34.0); MCHC 32.5 g/dL (31.0-37.0); MCV 94.1 fL (80.0-100.0); MEAN PLATELET VOLUME 9.2 fL (7.4-10.4); MONOCYTES 11.7 % (2-11); PLATELET COUNT 302 10x3/uL (130-400); RBC 2.71 10x6/uL (4.00-5.40); RDW 17.6 % (11.5-14.5); WBC 13.7 10x3/uL (4.8-10.8)
[2019-01-09 05:46] LABS: ALBUMIN 2.9 g/dL (3.4-5.0); ANION GAP 17.5 mmol/L (8-16); BILIRUBIN - TOTAL 0.92 mg/dL (0.2-1.3); CALCIUM 9.4 mg/dL (8.5-10.1); CREATININE - SERUM 2.9 mg/dL (0.6-1.3); PHOSPHOROUS 4.2 mg/dL (2.5-4.9); POTASSIUM - SERUM 4.5 mmol/L (3.5-5.1); PROTEIN - SERUM 7.5 g/dL (6.4-8.2); VANCOMYCIN - RANDOM 10.2 ug/mL (10.0-20.0)
--- NOTE | 2019-01-09 07:26 | NUR ---
REPORT RECEIVED. WILL CONTINUE WITH POC. PT CURRENTLY LYING SEMI FOWLERS. CALL LIGHT W/I REACH. PT IS AA BUT CONFUSED AT TIMES. PT IS BEDFAST. RR EVEN AND UNLABORED ON 2L 02 AND CURRENTLY UNDERGOING RESP TRX. NO S/S OF DISTRESS NOTED. NS INFUSING @KVO VIA R.WRIST PIV. PT DENIES ANY NEEDS AT THIS TIME. WILL CTM.
[2019-01-09 07:56] VITALS: BP 139/68
--- NOTE | 2019-01-09 09:24 | NUR ---
UPON AM MED PASS, PT WAS AAO X4. SHE ANSWERED ALL QUESTIONS APPROPRIATELY AND PRECISELY. SHE WAS AWARE OF HER SURROUNDINGS, WHO SHE WAS, THE CURRENT SITUATION AND AGREED TO TAKE ALL AM MEDICATIONS. SHE TOOK PO MEDS WITH EASE AND DENEIED ANY FURTHER NEEDS OR ISSUES. WILL CTM.
[2019-01-09 11:57] VITALS: BP 111/60
--- NOTE | 2019-01-09 13:33 | NUR ---
Nutrition follow-up: Diet: Renal ADA mechanical soft PO Intake has been very poor due to pts altered mental status. Yesterday RDN witnessed pt foaming at the mouth and daughter reported she was not doing well. Today pt is alert, oriented. Labs reviewed Wt: 241# No po intake recorded for today Will need to consider nutrition support if po intake remains poor. RDN following.
--- NOTE | 2019-01-09 14:10 | NUR ---
I have reviewed this patient and I concur with the Shift Assessment completed by the Licensed Practical Nurse today this shift.
[2019-01-09 16:33] VITALS: BP 136/62
--- NOTE | 2019-01-09 19:20 | NUR ---
PT MOANING AND SAYING NO NO NO LOUDLY. WHEN NURSE ASKS WHATS WRONG PT STATES NOTHING. PT DENIES ANY PAIN OR DISCOMFORT. S1S2, LUNGS HAVE DIMINISHED LOBES. LEFT SIDE FLACCID. LEFT ARM ELEVATED ON A PILLOW. HEEL PROTECTORS ON BILATERAL HEELS. PT ALERT TO NAME AND . TOLD NURSE HOSPITAL FOR PLACE KEEPING EYES CLOSED AND STILL MOANING OUT AND CRYING OUT. BEDLOW AND CALL LIGHT IN REACH. NAME AND DATE PLACED ON BOARD. WILL CPOC
[2019-01-09 20:00] VITALS: BP 106/60
--- NOTE | 2019-01-09 22:08 | NUR ---
6 UNTIS GIVEN FOR FSBS OF 290 PT CRYING AND MOANING AND YELLING OUT BUT STATES SHE IS FINE, NOT IN PAIN. EXPRESSING PAIN. GAVE A NORCO WITH NIGHT MEDICATIONS. ONLY ABLE TO GET PT TO TAKE NORCO KEPPRA AND ELIQUIS. REFUSED THE PEPCID AND LIPITOR. PT CANNOT TELL NURSE WHY SHE IS YELLING OUT. ATTEMPTED TO REPOSITION. PT STILL YELLED OUT AFTERWARDS. STATES SORRY WHEN NURSE ASKED HER WHY SHE IS YELLING. PT HAS NO S/S OF DISTRESS. WILL CPOC
--- NOTE | 2019-01-09 23:37 | NUR ---
PT NOW RESTING QUIETLY. YELLED OUT NO WHEN NURSE WALKED INTO ROOM, BUT WENT BACK TO SLEEP. PT BEDLOW AND CALL LIGHT IN REACH. NO S/S OF DISTRESS. WILL CPOC
--- NOTE | 2019-01-10 00:19 | NUR ---
PT MOANING AND CRYING OUT AGAIN. STARTED ZOSYN ORDERED. FSBS IS 238 4 UNITS GIVEN ORDERED. PT REPOSITIONED. DENIES ANY DISCOMFORT BUT CONTINUES TO YELL OUT AND MOAN. NO S/S OF DISTRESS. WILL CPOC
--- NOTE | 2019-01-10 02:55 | NUR ---
PT YELLING OUT AND MOANING, DENIES ANY PAIN AND STARTS SNORING. THAN STARTS MOANING WITH EYES STILL CLOSED. SNORING INBETWEEN YELLS, THICK WHITE SALIVA ON LIPS. CLEANED WITH A WET CLOTH. REPOSITIONED AND LET PT HEAD DOWN. ADDED A BLANKET BECAUSE PT STATES SHE IS COLD. PT SAID SHE IS SORRY. SHE DOESNT REALIZE SHE IS YELLING, ASSURED PT THAT IT IS ALRIGHT BUT TO TELL NURSE WHAT IS NEEDED TO STOP THE YELLING. PT STATES SHE DOESNT NEED ANY THING AND STARTS YELLING AGAIN BEFORE NURSE LEAVES THE ROOM. BEDLOW AND CALL LIGHT IN REACH. WILL CPOC
[2019-01-10 04:00] VITALS: BP 118/64
--- NOTE | 2019-01-10 04:16 | NUR ---
PT STILL YELLING OUT AND MOANING. NURSE STATED VIDA ARE YOU OK, PT OPENED EYES AND CONTINUED TO MOAN. NURSE SAID ARE YOU OK, DO YOU NEED SOMETHING? PT STATED NO, NURSE ASKED IF IN PAIN. PT STATES NO, NURSE SAID, VIDA, YOU ARE YELLING SO I WAS WORRIED. PT STATES I AM OFFERED A NORCO FOR COMFORT PT AGREED. BEDLOW AND CALL LIGHT IN REACH. WILL CPOC
[2019-01-10 05:25] LABS: BASOPHILS 0.1 % (0-2); EOSINOPHILS 2.1 % (0-7); HEMATOCRIT 26.4 % (36.0-48.0); HEMOGLOBIN 8.3 g/dL (12-16); IMMATURE GRANULOCYTES 0.5 % (0-5); LYMPHOCYTES 10.5 % (15-50); MCHC 31.4 g/dL (31.0-37.0); MCV 95.3 fL (80.0-100.0); MONOCYTES 9.2 % (2-11); NEUTROPHILS 77.6 % (40-80); PLATELET COUNT 294 10x3/uL (130-400); RBC 2.77 10x6/uL (4.00-5.40); RDW 17.3 % (11.5-14.5); WBC 14.2 10x3/uL (4.8-10.8)
[2019-01-10 05:48] LABS: ALBUMIN 2.7 g/dL (3.4-5.0); ANION GAP 16.5 mmol/L (8-16); BILIRUBIN - TOTAL 0.97 mg/dL (0.2-1.3); CALCIUM 9.2 mg/dL (8.5-10.1); CARBON DIOXIDE 22.9 mmol/L (21.0-32.0); CREATININE - SERUM 2.7 mg/dL (0.6-1.3); PHOSPHOROUS 3.3 mg/dL (2.5-4.9); POTASSIUM - SERUM 4.4 mmol/L (3.5-5.1); PROTEIN - SERUM 7.9 g/dL (6.4-8.2); VANCOMYCIN - RANDOM 8.2 ug/mL (10.0-20.0)
--- NOTE | 2019-01-10 06:14 | NUR ---
PT FSBS IS 175 2 UNITS GIVEN OF HUMALOG FOR Q4 HOUR DOSE 5 UNITS GIVEN FOR 0700 DOSE NS INFUSING AT 50 ORDERED. CLEANED PT AND REPOSITIONED. INCONT A LARGE AMOUNT. WILL CPOC
[2019-01-10 08:38] VITALS: BP 107/60
--- NOTE | 2019-01-10 09:38 | NUR ---
PT WAS ONLY ABLE TO TAKE HALF OF MEDICATION ORALLY THIS AM. PT ONLY RESPONSIVE TO LOUD VOICE. RR EVEN AND UNLABORED. VITALS STABLE. BED LOW CALL LIGHT WITHIN REACH WILL CONTINUE TO MONITOR.
--- NOTE | 2019-01-10 11:01 | MORECARE ---
CASE MANAGEMENT DISCHARGE SUMMARY PATIENT: VIDA GOMEZ UNIT: [id number] ADM DATE: 01/01/19 AGE: 58 : 58 SEX: F ROOM/BED: D.3126 AUTHOR: EDGAR VERMA PHYSICIAN: REFERRING PHYSICIAN: FRANKY CASAREZ MD DATE OF SERVICE: 01/10/19 Discharge Plan Patient Name: VIDA GOMEZ Facility: [facility]:[place] : 1960 Planned Disposition: Acute Care Hospital Anticipated Discharge Date: 01/10/19 Discharge Date: Expected LOS: 9 Initial Reviewer: [id number] Initial Review Date: 01/01/2019 Generated: 01/10/19 12:00 pm Comments DCP- Discharge Planning Updated by [id number]: Jovanni Santa on 01/10/19 9:[address] Patient Name: VIDA GOMEZ Encounter No: [id number] : 1960 Primary Insurance: [facility] MEDIC[employer] SOLUTIONS Anticipated DC Date: 01-10-2019 Planned Disposition: Acute Care Hospital External Planned Provider: [facility] DCP follow-up note: CM FAXED UPDATE TO [facility], . PT HAS BEEN ACCEPTED BY DR. CUELLAR OF [facility]. WAITING AVAILABILITY OF BED FOR TRANSFER. Jovanni Santa, AMANDA STONE DCP- Discharge Planning Updated by [id number]: Payton Stacy on 01/08/19 10:[address] RECEIVED VERBAL ORDER TO TRANSFER PATIENT TO [facility] FOR NEUROLOGY SECONDARY TO SEIZURE ACTIVITY, LETHARGY, AND FOAMING AT THE MOUTH. DR GUNDERSON IS TO DO THE DOC-TO-DOC, AND HER CELL NUMBER WAS PROVIDED TO ME VIA KELSEY TAPIA APN. @ 3712 I SPOKE WITH NATHAN IN BED CONTROL, REQUESTED INFORMATION HAS BEEN FAXED AND I AM WAITING ON HER RETURN CALL. AT TIME OF INITIAL CALL, SHE DID NOT TAKE DOWN THE INFORMATION FOR DR GUNDERSON, SHE STATED SHE WOULD REVIEW THE INFORMATION AND CALL ME BACK. I AM AWAITING ON A RETURN CALL. DCP- Discharge Planning Updated by [id number]: Jovanni Santa on 01/02/19 12:[address] Patient Name: VIDA GOMEZ Admission Status: ER Accout number: [id number] Admission Date: 01-01-2019 : 1960 Admission Diagnosis: Attending: FRANKY CASAREZ Current LOS: 1 Anticipated DC Date: Planned Disposition: Senior Living Facility Primary Insurance: [facility] MEDICARE SOLUTIONS PLANNED EXTERNAL PROVIDER: [facility] Discharge Planning Comments: CM MET WITH PT IN ROOM TO DISCUSS DISCHARGE PLANNING AND NEEDS. PT REPORTS BEING IN REHAB AT [facility] AND WILL BE RETURNING THERE FOR CONTINUED REHAB AT DISCHARGE. CM GAVE [facility] FACILITY PROVIDER LISTING AND COMPLETED CHOICE FOR [facility] WHICH PT WAS NOT ABLE TO SIGN. CM FAXED HOSPITAL UPDATE TO [facility] AT [phone]. FOR DISCHARGE, FAX DISCHARGE INFORMATION TO [facility] AT [phone]. NURSE REPORT TO BE CALLED TO [facility] AT [phone]. [facility] TO ARRANGE VAN TRANSPORTATION. Press Service Reader: Jovanni Santa DCPIA - Discharge Planning Initial Assessment Updated by [id number]: Jovanni Santa on 01/02/19 1:52 pm * Is the patient Alert and Oriented? Yes * How many steps to enter\exit or inside your home? NONE * PCP DR. BABB * [facility] * Preadmission Environment Senior Living Facility * Facility Name [facility] * ADLs Partial Dependent * Partial ADLs (Assistance needed) Ambulation Bathing Dressing Medication Management Transfers * Equipment Cane Shower Chair * Other Equipment ALL MEDICAL EQUIPMENT PROVIDED BY FACILITY * List name and contact numbers for known caregivers / representatives who currently or will assist patient after discharge: MARIE SUAREZ DTR, * Verbal permission to speak to the caregivers and representatives has been obtained from the patient. N/A * Community resources currently utilized None * Please name any agencies selected above. PT REPORTS HAVING [facility] FOR REHAB * Additional services required to return to the preadmission environment? No * Can the patient safely return to the preadmission environment? Yes * Has this patient been hospitalized within the prior 30 days at any hospital? Yes Coverage Notice Reviewer: [id number] Mercedes Santa Notice Issued Date-Time: 01/02/2019 9:05 Notice Type: Patient Choice Letter Notice Delivered To: Patient Relationship to Patient: Mill Hand Plate Mill Name: Delivery Method: HAND - Hand Delivered Jo Days: Prior Verbal Notification: Recipient Understood Notice: Yes Recipient Signature: Med Rec Note Co-signed by Attending: Coverage Notice Comment: [facility] Last DP export: 01/08/19 10:16 a Patient Name: VIDA GOMEZ Page 53867 at 1101 All edits/amendments must be made on the electronic document DICTATION DATE: 01/10/191099 WET MACHINE CUTTER: COLT 01/10/19 1100 RPT#: [id number] DC DATE: STATUS: ADM IN [facility] [address] [place] [address] END OF REPORT
[2019-01-10 11:39] VITALS: BP 115/82
--- NOTE | 2019-01-10 12:20 | MORECARE ---
CASE MANAGEMENT DISCHARGE SUMMARY PATIENT: VIDA GOMEZ UNIT: [id number] ADM DATE: 01/01/19 AGE: 58 : 58 SEX: F ROOM/BED: D.6306 AUTHOR: EDGAR VERMA PHYSICIAN: REFERRING PHYSICIAN: FRANKY CASAREZ MD DATE OF SERVICE: 01/10/19 Discharge Plan Patient Name: VIDA GOMEZ Facility: [facility]:[place] : 1960 Planned Disposition: Acute Care Hospital Anticipated Discharge Date: 01/10/19 Discharge Date: Expected LOS: 9 Initial Reviewer: [email or web address] Initial Review Date: 01/01/2019 Generated: 01/10/19 1:20 pm Comments DCP- Discharge Planning Updated by [id number]: Payton Stacy on 01/10/19 11:[address] @ 0807 I SPOKE WITH WILMAN IN BEDCONTROL AT [facility] IN REGARDS TO TRANSFER. SHE STATED THAT THEY WERE STILL FULL AND HAD NO BEDS. SHE SAID HOPEFULLY THEY WOULD HAVE A BED OPEN UP THIS AFTERNOON. SHE WILL CALL BACK IF/WHEN A BED OPENS. WILL WAIT FOR RETURN CALL. DCP- Discharge Planning Updated by [id number]: Jovanni Santa on 01/10/19 9:[address] Patient Name: VIDA GOMEZ Encounter No: [id number] : 1960 Primary Insurance: [facility] MEDICARE SOLUTIONS Anticipated DC Date: 01-10-2019 Planned Disposition: Acute Care Hospital External Planned Provider: [facility] DCP follow-up note: CM FAXED UPDATE TO [facility], . PT HAS BEEN ACCEPTED BY DR. CUELLAR OF [facility]. WAITING AVAILABILITY OF BED FOR TRANSFER. Jovanni Santa, AMANDA STONE DCP- Discharge Planning Updated by [id number]: Payton Stacy on 01/08/19 10:[address] RECEIVED VERBAL ORDER TO TRANSFER PATIENT TO [facility] FOR NEUROLOGY SECONDARY TO SEIZURE ACTIVITY, LETHARGY, AND FOAMING AT THE MOUTH. DR GUNDERSON IS TO DO THE DOC-TO-DOC, AND HER CELL NUMBER WAS PROVIDED TO ME VIA KLESEY TAPIA APN. @ 1505 I SPOKE WITH NATHAN IN BED CONTROL, REQUESTED INFORMATION HAS BEEN FAXED AND I AM WAITING ON HER RETURN CALL. AT TIME OF INITIAL CALL, SHE DID NOT TAKE DOWN THE INFORMATION FOR DR GUNDERSON, SHE STATED SHE WOULD REVIEW THE INFORMATION AND CALL ME BACK. I AM AWAITING ON A RETURN CALL. DCP- Discharge Planning Updated by [id number]: Jovanni Santa on 01/02/19 12:[address] Patient Name: VIDA GOMEZ Admission Status: ER Accout number: [id number] Admission Date: 01-01-2019 : 1960 Admission Diagnosis: Attending: FRANKY CASAREZ Current LOS: 1 Anticipated DC Date: Planned Disposition: Penitentiary Facility Primary Insurance: [facility] MEDICARE SOLUTIONS PLANNED EXTERNAL PROVIDER: [facility] Discharge Planning Comments: CM MET WITH PT IN ROOM TO DISCUSS DISCHARGE PLANNING AND NEEDS. PT REPORTS BEING IN REHAB AT [facility] AND WILL BE RETURNING THERE FOR CONTINUED REHAB AT DISCHARGE. CM GAVE LONG TERM FACILITY PROVIDER LISTING AND COMPLETED CHOICE FOR [facility] WHICH PT WAS NOT ABLE TO SIGN. CM FAXED HOSPITAL UPDATE TO [facility] AT [phone]. FOR DISCHARGE, FAX DISCHARGE INFORMATION TO [facility] AT [phone]. NURSE REPORT TO BE CALLED TO [facility] AT [phone]. [facility] TO ARRANGE VAN TRANSPORTATION. Actuarial Analyst: Jovanni Santa DCPIA - Discharge Planning Initial Assessment Updated by [id number]: Jovanni Santa on 01/02/19 1:52 pm * Is the patient Alert and Oriented? Yes * How many steps to enter\exit or inside your home? NONE * PCP DR. BABB * [facility] * Preadmission Environment [facility] Facility * Facility Name [facility] * ADLs Partial Dependent * Partial ADLs (Assistance needed) Ambulation Bathing Dressing Medication Management Transfers * Equipment Cane Shower Chair * Other Equipment ALL MEDICAL EQUIPMENT PROVIDED BY FACILITY * List name and contact numbers for known caregivers / representatives who currently or will assist patient after discharge: MARIE SUAREZ DTR, * Verbal permission to speak to the caregivers and representatives has been obtained from the patient. N/A * Community resources currently utilized None * Please name any agencies selected above. PT REPORTS HAVING [facility] FOR REHAB * Additional services required to return to the preadmission environment? No * Can the patient safely return to the preadmission environment? Yes * Has this patient been hospitalized within the prior 30 days at any hospital? Yes Coverage Notice Reviewer: [id number] Mercedes Santa Notice Issued Date-Time: 01/02/2019 9:05 Notice Type: Patient Choice Letter Notice Delivered To: Patient Relationship to Patient: Wet Finisher Name: Delivery Method: HAND - Hand Delivered Jo Days: Prior Verbal Notification: Recipient Understood Notice: Yes Recipient Signature: Med Rec Note Co-signed by Attending: Coverage Notice Comment: [facility] Last DP export: 01/10/19 10:00 a Patient Name: VIDA GOMEZ Page [phone] at 1220 All edits/amendments must be made on the electronic document DICTATION DATE: 01/10/19 1220 TELEVISION STATION MANAGER: COLT 01/10/19 1220 RPT#: [id number] DC DATE: STATUS: ADM IN [facility] [address] [place] [address] END OF REPORT
--- NOTE | 2019-01-10 13:01 | NUR ---
PT LAYING IN BED ONLY RESPONSIVE TO LOUD STIMULI. PT NOT EATING. PT RR EVEN AND UNLABORED. BED LOW CALL LIGHT WITHIN REACH. WILL CONTINUE TO MONITOR.
--- NOTE | 2019-01-10 14:18 | NUR ---
I have reviewed this patient and I concur with the Shift Assessment completed by the Licensed Practical Nurse today this shift.
--- NOTE | 2019-01-10 14:47 | NUR ---
PT PLACED ON BIPAP. BED LOW CALL LIGHT WITHIN REACH. WILL CONTINUE TO MONITOR.
[2019-01-10 15:55] VITALS: BP 116/56
--- NOTE | 2019-01-10 18:04 | NUR ---
PT ALERT TO VOICE AT THIS TIME. PT OPNED EYES AND STARTED TALKING. PT CURRENTLY ON BIPAP. BED LOW CALL LIGHT WITHIN REACH. WILL CONTINUE TO [place]
--- NOTE | 2019-01-10 19:14 | NUR ---
PT IN BED. AROUSES TO DEEP STIMULI. OPENS EYES TO SPEECH. NO ACUTE DISTRESS NOTED AT THIS TIME.
[2019-01-10 20:00] VITALS: BP 100/52
--- NOTE | 2019-01-10 20:23 | NUR ---
PT UNABLE TO BE AROUSED ENOUGH TO TAKE PO MEDICATIONS. PT IS NON VERBAL AT THIS TIME AND ONLY OPENS EYES TO DEEP STIMULI.
[2019-01-11] VITALS: BP 118/72
[2019-01-11 04:00] VITALS: BP 125/89
[2019-01-11 05:38] LABS: BASOPHILS 0.1 % (0-2); EOSINOPHILS 2.9 % (0-7); IMMATURE GRANULOCYTES 0.3 % (0-5); LYMPHOCYTES 8.7 % (15-50); MCH 30.8 pg (26.0-34.0); MCHC 30.8 g/dL (31.0-37.0); MEAN PLATELET VOLUME 8.8 fL (7.4-10.4); MONOCYTES 8.3 % (2-11); NEUTROPHILS 79.7 % (40-80); PLATELET COUNT 256 10x3/uL (130-400); RDW 17.8 % (11.5-14.5); WBC 13.4 10x3/uL (4.8-10.8)
[2019-01-11 05:54] LABS: ALBUMIN 2.7 g/dL (3.4-5.0); ANION GAP 14.5 mmol/L (8-16); CALCIUM 8.8 mg/dL (8.5-10.1); CARBON DIOXIDE 24.4 mmol/L (21.0-32.0); CREATININE - SERUM 2.5 mg/dL (0.6-1.3); PHOSPHOROUS 4.7 mg/dL (2.5-4.9); POTASSIUM - SERUM 4.9 mmol/L (3.5-5.1)
[2019-01-11 06:09] LABS: BILIRUBIN - TOTAL 0.64 mg/dL (0.2-1.3); PROTEIN - SERUM 7.9 g/dL (6.4-8.2); VANCOMYCIN - RANDOM 6.9 ug/mL (10.0-20.0)
[2019-01-11 08:02] VITALS: BP 115/62
--- NOTE | 2019-01-11 10:06 | NUR ---
PT AROUSES TO DEEP STIMULI. ABLE TO ANSWER QUESTIONS APPROPRIATLY. PT IS ABLE TO SWALLOW WATER WITH NO DIFFICULTY BUT NOT ABLE TO SWALLOW MEDICATIONS. CALL LIGHT WITHIN REACH. WILL CONT TO FOLLOW POC
--- NOTE | 2019-01-11 11:04 | MORECARE ---
CASE MANAGEMENT DISCHARGE SUMMARY PATIENT: VIDA GOMEZ UNIT: [id number] ADM DATE: 01/01/19 AGE: 58 : 58 SEX: F ROOM/BED: D.3180 AUTHOR: BAYRON,DOC PHYSICIAN: REFERRING PHYSICIAN: FRANKY CASAREZ MD DATE OF SERVICE: 01/11/19 Discharge Plan Patient Name: VIDA GOMEZ Facility: [facility]:[place] : 1960 Planned Disposition: Acute Care Hospital Anticipated Discharge Date: 01/10/19 Discharge Date: Expected LOS: 9 Initial Reviewer: [id number] Initial Review Date: 01/01/2019 Generated: 01/11/19 12:04 pm Comments DCP- Discharge Planning Updated by [id number]: Payton Stacy on 01/11/19 9:[address] RECEIVED VERBAL ORDER FROM FEDE BARNES APN TO TRY TO TRANSFER PATIENT TO ANOTHER HOSPITAL THAT HAS NEUROLOGY. PATIENT HAS BEEN ACCEPTED AT [facility] AND THEY HAVE HAD NO BEDS. @ 1028 I PLACED A CALL AND SPOKE WITH WILMAN WHO STATED THAT THEY STILL HAVE NO BEDS. @1031 I PLACED A CALL TOT TRANSFER CENTER ( ) AND SPOKE THOR BURROUGHS. ALL INFORMATION GIVEN AND QUESTIONS ANSWERED. FACE SHEET FAXED TO . I DID EXPLAINE THAT WE WANTED THE CLOSEST FACILTY THAT HAD NEURO TO [place]. WILL WAIT FOR RETURN CALL. DCP- Discharge Planning Updated by [id number]: Payton Stacy on 01/10/19 11:[address] @ 0807 I SPOKE WITH WILMAN IN BEDCONTROL AT [facility] IN REGARDS TO TRANSFER. SHE STATED THAT THEY WERE STILL FULL AND HAD NO BEDS. SHE SAID HOPEFULLY THEY WOULD HAVE A BED OPEN UP THIS AFTERNOON. SHE WILL CALL BACK IF/WHEN A BED OPENS. WILL WAIT FOR RETURN CALL. DCP- Discharge Planning Updated by [id number]: Jovanni Santa on 01/10/19 9:[address] Patient Name: VIDA GOMEZ Encounter No: [id number] : 1960 Primary Insurance: [facility] MEDICARE SOLUTIONS Anticipated DC Date: 01-10-2019 Planned Disposition: Acute Care Hospital External Planned Provider: [facility] DCP follow-up note: CM FAXED UPDATE TO [facility], . PT HAS BEEN ACCEPTED BY DR. CUELLAR OF [facility]. WAITING AVAILABILITY OF BED FOR TRANSFER. Jovanni Santa, CASE MANAGEMENT DCP- Discharge Planning Updated by [id number]: Payton Stacy on 01/08/19 10:[address] RECEIVED VERBAL ORDER TO TRANSFER PATIENT TO [facility] FOR NEUROLOGY SECONDARY TO SEIZURE ACTIVITY, LETHARGY, AND FOAMING AT THE MOUTH. DR GUNDERSON IS TO DO THE DOC-TO-DOC, AND HER CELL NUMBER WAS PROVIDED TO ME VIA KELSEY TAPIA APN. @ 6906 I SPOKE WITH NATHAN IN BED CONTROL, REQUESTED INFORMATION HAS BEEN FAXED AND I AM WAITING ON HER RETURN CALL. AT TIME OF INITIAL CALL, SHE DID NOT TAKE DOWN THE INFORMATION FOR DR GUNDERSON, SHE STATED SHE WOULD REVIEW THE INFORMATION AND CALL ME BACK. I AM AWAITING ON A RETURN CALL. DCP- Discharge Planning Updated by [id number]: Jovanni Santa on 01/02/19 12:[address] Patient Name: VIDA GOMEZ Admission Status: ER Accout number: [id number] Admission Date: 01-01-2019 : 1960 Admission Diagnosis: Attending: FRANKY CASAREZ Current LOS: 1 Anticipated DC Date: Planned Disposition: Alf Facility Primary Insurance: [facility] MEDICARE SOLUTIONS PLANNED EXTERNAL PROVIDER: [facility] Discharge Planning Comments: CM MET WITH PT IN ROOM TO DISCUSS DISCHARGE PLANNING AND NEEDS. PT REPORTS BEING IN REHAB AT [facility] AND WILL BE RETURNING THERE FOR CONTINUED REHAB AT DISCHARGE. CM GAVE [facility] FACILITY PROVIDER LISTING AND COMPLETED CHOICE FOR [facility] WHICH PT WAS NOT ABLE TO SIGN. CM FAXED HOSPITAL UPDATE TO [facility] AT [phone]. FOR DISCHARGE, FAX DISCHARGE INFORMATION TO [facility] AT [phone]. NURSE REPORT TO BE CALLED TO [facility] AT [phone]. [facility] TO ARRANGE VAN TRANSPORTATION. Strategic Marketing Specialist: Jovanni Santa DCPIA - Discharge Planning Initial Assessment Updated by [id number]: Jovanni Santa on 01/02/19 1:52 pm * Is the patient Alert and Oriented? Yes * How many steps to enter\exit or inside your home? NONE * PCP DR. BABB * [facility] * Preadmission Environment Alf Facility * Facility Name [facility] * ADLs Partial Dependent * Partial ADLs (Assistance needed) Ambulation Bathing Dressing Medication Management Transfers * Equipment Cane Shower Chair * Other Equipment ALL MEDICAL EQUIPMENT PROVIDED BY FACILITY * List name and contact numbers for known caregivers / representatives who currently or will assist patient after discharge: MARIE SUAREZ, DTR, * Verbal permission to speak to the caregivers and representatives has been obtained from the patient. N/A * Community resources currently utilized None * Please name any agencies selected above. PT REPORTS HAVING [facility] FOR REHAB * Additional services required to return to the preadmission environment? No * Can the patient safely return to the preadmission environment? Yes * Has this patient been hospitalized within the prior 30 days at any hospital? Yes Coverage Notice Reviewer: [id number] Mercedes Santa Notice Issued Date-Time: 01/02/2019 9:05 Notice Type: Patient Choice Letter Notice Delivered To: Patient Relationship to Patient: Family Medicine Resident Name: Delivery Method: HAND - Hand Delivered Jo Days: Prior Verbal Notification: Recipient Understood Notice: Yes Recipient Signature: Med Rec Note Co-signed by Attending: Coverage Notice Comment: [facility] RETURN Last DP export: 01/10/19 11:20 a Patient Name: VIDA GOMEZ Page 11713 at 1104 All edits/amendments must be made on the electronic document DICTATION DATE: 01/11/191102 BLUE LEATHER SETTER: COLT 01/11/191102 RPT#: [id number] DC DATE: STATUS: ADM IN [facility] [address] [place] [address] END OF REPORT
--- NOTE | 2019-01-11 11:27 | EC ---
PATIENT:VIDA GOMEZ DATE OF SERVICE: 01/01/19 SEX: F MEDICAL RECORD: [id number] DATE OF : 58 LOCATION:D.M2 D.212 AGE OF PATIENT: 58 ADMISSION DATE: 01/01/19 REFERRING PHYSICIAN: INTERPRETING PHYSICIAN: AFTAB ANGULO MD ECHOCARDIOGRAM REPORT ECHO CHARGES 5 ECHO LIMITED Date: 01/05/19 CLINICAL DIAGNOSIS: R/O VEG ECHOCARDIOGRAPHIC MEASUREMENTS (adult normal given) AC root (d.<3.7cm) 0 cm LV Septum d (<1.2 cm> 0 cm Valve Excursion 0 cm LV Septum (systole) 0 cm Left Atria (s.<4.0cm> 0 cm LVPW d(<1.2cm) 0 cm RV (d.<2.3cm) 0 cm LVPW (sytole) 0 cm LV diastole(<5.6CM) 0 cm MV E-F(>70mm/sec) 0 cm LV systole 0 cm LVOT Diameter 0 cm MV exc.(>10mm) 0 cm Est.ejection fraction (50-75%) 0 % DOPPLER: LVIT cm/sec A 0 cm/sec E 0 cm/sec LA 0 cm/sec RVSP 0 mmHg LVOT 0 cm/sec AOP1/2T 0 m/s Asc. Ao 0 cm/sec RVOT 0 cm/sec RA 0 cm/sec PA 0 cm/sec AV Gradient Peak 0 mmHg AV Mean 0 mmHg AV Area 0 cm MV Gradient Peak 0 mmHg MV Mean 0 mmHg MV Area 0 cm COMMENTS: Asphalt Roller Operator: Javier GARCIA Educational Technology Coordinator: 1 Dr. Angulo TAPE# PACS Pericardial Effusion N DATE OF SERVICE: LIMITED ECHOCARDIOGRAM FINDINGS: 1. Left ventricular chamber size is within normal limits. Left ventricular systolic function is mildly reduced. Overall ejection fraction in the 40% range. 2. No evidence of vegetative endocarditis. ECHOCARDIOGRAM REPORT [id number] VIDA GOMEZ TRANSINT:[id number] Voice Confirmation ID: [id number] DOCUMENT ID: [id number] AFTAB ANGULO MD at 1127 CC: [id number] DICTATION DATE: 01/06/19 1008 ELECTRICIAN'S HELPER: 01/06/19 1537 [place] [address]
--- NOTE | 2019-01-11 12:35 | NUR ---
ASSISTED PT TO SIT UP IN BED AND TRAY SET UP. PT DENIES ANY FURTHER NEEDS AT THIS TIME, WILL CONT TO FOLLOW POC
--- NOTE | 2019-01-11 13:40 | NUR ---
ASSISTED PT WITH BED BATH AND COMPLETE LINEN CHANGE. DENIES ANY NEEDS AT THIS TIME, WILL CONT TO FOLLOW POC
--- NOTE | 2019-01-11 14:59 | NUR ---
UA ORDERED. PT HAS NOT URINATED ALL MORNING. CLEANSED PT TED AREA AND LET PT SIT ON A BEDPAN. AFTER 15 MINS PT WAS UNABLE TO URINATE. INSERTED 16FR 10CC MCKAY CATHETER UTALIZING STERILE TECHNIQUE SO THAT URINE RETENTION CAN BE ACCESSED. MCKAY CATHETER DRAINED 300ML OF URINE UPON INSERTION. NOTIFIED KELSEY WILDER AND PER KELSEY, LEAVE MCKAY CATHETER IN PLACE. UA OBTAINED AND SENT TO LAB.
[2019-01-11 15:03] LABS: APPEARANCE CLEAR (CLEAR); BILIRUBIN NEGATIVE (NEGATIVE); COLOR YELLOW (YELLOW); GLUCOSE NEGATIVE (NEGATIVE); KETONE NEGATIVE (NEGATIVE); NITRITE NEGATIVE (NEGATIVE); PROTEIN TRACE mg/dL (NEGATIVE); SPECIFIC GRAVITY 1.015 (1.005-1.020); UROBILINOGEN NORMAL (NORMAL)
--- NOTE | 2019-01-11 15:24 | NUR ---
RECIEVED CALL FROM [facility] STATING THAT PT HAS BEEN ACCEPTED TO [facility] ICU WITH . PER [facility] THEY ARE STILL WAITING ON A BED AT THIST TIME.
--- NOTE | 2019-01-11 19:14 | NUR ---
PT IN BED. AWAKE AND ALERT. PROVIDED ICE WATER PER REQUEST. DENIES FURTHER NEEDS AT THIS TIME.
[2019-01-11 20:00] VITALS: BP 114/70
[2019-01-12] VITALS (7 sets, daily range): BP systolic 115–146; BP diastolic 52–83
--- NOTE | 2019-01-12 07:20 | NUR ---
ASSESSMENT COMPLETED. ALERT AND ORIENTED AT PRESENT TIME. TELEMERTY SHOWS FLUTTER. O2 AT 3 L/M PER NC.RIGHT WRIST WITH NSR AT 50. PT IS A DNR. MCKAY CATH TO BEDSIDE GRAVITY BAG. LEFT SIDE FLASID. BILATERAL HEEL PROCTORS ON.SR UP WITH CALL LIGHT IN REACH
[2019-01-12 13:06] LABS: BASOPHILS 0.1 % (0-2); EOSINOPHILS 1.7 % (0-7); HEMATOCRIT 25.7 % (36.0-48.0); HEMOGLOBIN 7.8 g/dL (12-16); IMMATURE GRANULOCYTES 0.3 % (0-5); LYMPHOCYTES 5.2 % (15-50); MCH 30.5 pg (26.0-34.0); MCHC 30.4 g/dL (31.0-37.0); MCV 100.4 fL (80.0-100.0); MEAN PLATELET VOLUME 9.5 fL (7.4-10.4); MONOCYTES 6.9 % (2-11); NEUTROPHILS 85.8 % (40-80); PLATELET COUNT 264 10x3/uL (130-400); RBC 2.56 10x6/uL (4.00-5.40); RDW 18.5 % (11.5-14.5); WBC 14.3 10x3/uL (4.8-10.8)
[2019-01-12 13:16] LABS: ALBUMIN 2.6 g/dL (3.4-5.0); ANION GAP 15.4 mmol/L (8-16); BILIRUBIN - TOTAL 0.69 mg/dL (0.2-1.3); CALCIUM 8.5 mg/dL (8.5-10.1); CARBON DIOXIDE 22.1 mmol/L (21.0-32.0); CREATININE - SERUM 2.3 mg/dL (0.6-1.3); POTASSIUM - SERUM 4.5 mmol/L (3.5-5.1); VANCOMYCIN - RANDOM 3.9 ug/mL (10.0-20.0)
--- NOTE | 2019-01-12 18:02 | NUR ---
PT DISCHARGED. IV DCD WITH TIP INTACT. INSTRUCTIONS GIVEN. TO PRIVATE CAR PER WHEELCHAIR.
--- NOTE | 2019-01-12 18:28 | NUR ---
LYING QUIETLY. DENIES ANY NEEDS. TELEMERTY SHOWS FLUTTER. NO NEEDS VOICED
--- NOTE | 2019-01-12 19:41 | NUR ---
PT IN BED WISHES TO GET UP. PT IS UNABLE TO WALK OR STAND. INFORMED BY THE TRANSFER CENTER AT [facility] THAT THERE IS STILL NO BED AVAILABLE.
[2019-01-13 03:43] VITALS: BP 111/67
--- NOTE | 2019-01-13 04:18 | NUR ---
TRANSFER CENTER INFORMS OF AVAILABLE BED AT THIS TIME. JAVA MANAGER INFORMED.
--- NOTE | 2019-01-13 04:51 | NUR ---
REPORT CALLED TO BOOKER AT [facility]
[2019-01-13 07:20] LABS: BASOPHILS 0.1 % (0-2); EOSINOPHILS 1.7 % (0-7); HEMATOCRIT 23.5 % (36.0-48.0); IMMATURE GRANULOCYTES 0.3 % (0-5); LYMPHOCYTES 6.3 % (15-50); MCH 30.8 pg (26.0-34.0); MCHC 31.5 g/dL (31.0-37.0); MEAN PLATELET VOLUME 9.3 fL (7.4-10.4); MONOCYTES 7.6 % (2-11); PLATELET COUNT 254 10x3/uL (130-400); RDW 18.2 % (11.5-14.5); WBC 12.7 10x3/uL (4.8-10.8)
[2019-01-13 07:26] LABS: ALBUMIN 2.5 g/dL (3.4-5.0); ANION GAP 12.5 mmol/L (8-16); BILIRUBIN - TOTAL 0.66 mg/dL (0.2-1.3); CALCIUM 8.5 mg/dL (8.5-10.1); CARBON DIOXIDE 24.5 mmol/L (21.0-32.0); CREATININE - SERUM 2.6 mg/dL (0.6-1.3); PROTEIN - SERUM 7.4 g/dL (6.4-8.2)
[2019-01-13 07:30] LABS: HEMOGLOBIN 7.4 g/dL (12-16); MCV 97.9 fL (80.0-100.0)
--- NOTE | 2019-01-14 09:42 | MORECARE ---
CASE MANAGEMENT DISCHARGE SUMMARY PATIENT: VIDA GOMEZ UNIT: [id number] ADM DATE: 01/01/19 AGE: 58 : 58 SEX: F ROOM/BED: D.5416 AUTHOR: BAYRON,DOC PHYSICIAN: REFERRING PHYSICIAN: FRANKY CASAREZ MD DATE OF SERVICE: 01/14/19 Discharge Plan Patient Name: VIDA GOMEZ Facility: [facility]:[place] : 1960 Planned Disposition: Acute Care Hospital Anticipated Discharge Date: 12/13/18 Discharge Date: 01/13/2019 Expected LOS: Initial Reviewer: [id number] Initial Review Date: 01/01/2019 Generated: 01/14/19 10:41 am DCP- Discharge Planning Updated by [id number]: Payton Stacy on 01/11/19 9:[address] RECEIVED VERBAL ORDER FROM FEDE BARNES APN TO TRY TO TRANSFER PATIENT TO ANOTHER HOSPITAL THAT HAS NEUROLOGY. PATIENT HAS BEEN ACCEPTED AT [facility] AND THEY HAVE HAD NO BEDS. @ 1028 I PLACED A CALL AND SPOKE WITH WILMAN WHO STATED THAT THEY STILL HAVE NO BEDS. @1031 I PLACED A CALL TOT TRANSFER CENTER ( ) AND SPOKE THOR BURROUGHS. ALL INFORMATION GIVEN AND QUESTIONS ANSWERED. FACE SHEET FAXED TO . I DID EXPLAINE THAT WE WANTED THE CLOSEST FACILTY THAT HAD NEURO TO [place]. WILL WAIT FOR RETURN CALL. DCP- Discharge Planning Updated by [id number]: Payton Stacy on 01/10/19 11:[address] @ 0807 I SPOKE WITH WILMAN IN BEDCONTROL AT [facility] IN REGARDS TO TRANSFER. SHE STATED THAT THEY WERE STILL FULL AND HAD NO BEDS. SHE SAID HOPEFULLY THEY WOULD HAVE A BED OPEN UP THIS AFTERNOON. SHE WILL CALL BACK IF/WHEN A BED OPENS. WILL WAIT FOR RETURN CALL. DCP- Discharge Planning Updated by [id number]: Jovanni Santa on 01/10/19 9:[address] Patient Name: VIDA GOMEZ Encounter No: [id number] : 1960 Primary Insurance: [facility] MEDICARE SOLUTIONS Anticipated DC Date: 01-10-2019 Planned Disposition: Acute Care Hospital External Planned Provider: [facility] DCP follow-up note: CM FAXED UPDATE TO [facility], . PT HAS BEEN ACCEPTED BY DR. CUELLAR OF [facility]. WAITING AVAILABILITY OF BED FOR TRANSFER. Jovanni Santa, CASE MANAGEMENT DCP- Discharge Planning Updated by [id number]: Payton Regis on 01/08/19 10:[address] RECEIVED VERBAL ORDER TO TRANSFER PATIENT TO [facility] FOR NEUROLOGY SECONDARY TO SEIZURE ACTIVITY, LETHARGY, AND FOAMING AT THE MOUTH. DR GUNDERSON IS TO DO THE DOC-TO-DOC, AND HER CELL NUMBER WAS PROVIDED TO ME VIA KELSEY TAPIA APN. @ 2267 I SPOKE WITH NATHAN IN BED CONTROL, REQUESTED INFORMATION HAS BEEN FAXED AND I AM WAITING ON HER RETURN CALL. AT TIME OF INITIAL CALL, SHE DID NOT TAKE DOWN THE INFORMATION FOR DR GUNDERSON, SHE STATED SHE WOULD REVIEW THE INFORMATION AND CALL ME BACK. I AM AWAITING ON A RETURN CALL. DCP- Discharge Planning Updated by [id number]: Jovanni Santa on 01/02/19 12:[address] Patient Name: VIDA GOMEZ Admission Status: ER Accout number: [id number] Admission Date: 01-01-2019 : 1960 Admission Diagnosis: Attending: FRANKY CASAREZ Current LOS: 1 Anticipated DC Date: Planned Disposition: Custodial Facility Primary Insurance: [facility] MEDICARE SOLUTIONS PLANNED EXTERNAL PROVIDER: [facility] Discharge Planning Comments: CM MET WITH PT IN ROOM TO DISCUSS DISCHARGE PLANNING AND NEEDS. PT REPORTS BEING IN REHAB AT [facility] AND WILL BE RETURNING THERE FOR CONTINUED REHAB AT DISCHARGE. CM GAVE NURSING HOME FACILITY PROVIDER LISTING AND COMPLETED CHOICE FOR [facility] WHICH PT WAS NOT ABLE TO SIGN. CM FAXED HOSPITAL UPDATE TO [facility] AT [phone]. FOR DISCHARGE, FAX DISCHARGE INFORMATION TO [facility] AT [phone]. NURSE REPORT TO BE CALLED TO [facility] AT [phone]. [facility] TO ARRANGE VAN TRANSPORTATION. Associate Dean: Jovanni Santa DCPIA - Discharge Planning Initial Assessment Updated by [id number]: Jovanni Santa on 01/02/19 1:52 pm * Is the patient Alert and Oriented? Yes * How many steps to enter\exit or inside your home? NONE * PCP DR. BABB * [facility] * Preadmission Environment Custodial Facility * [facility] * ADLs Partial Dependent * Partial ADLs (Assistance needed) Ambulation Bathing Dressing Medication Management Transfers * Equipment Cane Shower Chair * Other Equipment ALL MEDICAL EQUIPMENT PROVIDED BY FACILITY * List name and contact numbers for known caregivers / representatives who currently or will assist patient after discharge: MARIE SUAREZ, DTR, * Verbal permission to speak to the caregivers and representatives has been obtained from the patient. N/A * Community resources currently utilized None * Please name any agencies selected above. PT REPORTS HAVING [facility] FOR REHAB * Additional services required to return to the preadmission environment? No * Can the patient safely return to the preadmission environment? Yes * Has this patient been hospitalized within the prior 30 days at any hospital? 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
== END 2019-01-13 08:00 | disposition short-term general hospital (02) | DRG 193 ==
LOC: D.ER 13:40 → D.M2 17:25
PROVIDERS: Emergency Medicine; Family Medicine; Internal Medicine Nephrology; ADMIT Internal Medicine Nephrology; ATTEND Internal Medicine Nephrology
DX: J18.9 Pneumonia, unspecified organism (principal); J96.22 Acute and chronic respiratory failure with hypercapnia; G93.41 Metabolic encephalopathy; N18.4 Chronic kidney disease, stage 4 (severe); N17.9 Acute kidney failure, unspecified; R78.81 Bacteremia; I69.354 Hemiplegia and hemiparesis following cerebral infarction affecting left non-dominant side; E87.1 Hypo-osmolality and hyponatremia; J44.0 Chronic obstructive pulmonary disease with (acute) lower respiratory infection; E11.22 Type 2 diabetes mellitus with diabetic chronic kidney disease; I12.9 Hypertensive chronic kidney disease with stage 1 through stage 4 chronic kidney disease, or unspecified chronic kidney disease; I48.91 Unspecified atrial fibrillation; E78.5 Hyperlipidemia, unspecified; D50.9 Iron deficiency anemia, unspecified; G40.909 Epilepsy, unspecified, not intractable, without status epilepticus; Z86.73 Personal history of transient ischemic attack (TIA), and cerebral infarction without residual deficits